=== PATIENT | male | born 1990 | race American Indian/Alaskan Native ===

== ENCOUNTER 2020-05-20 15:04 | Emergency (ER) | payer SELFPAY ==
[2020-05-20 15:13] VITALS: BP 139/81
--- NOTE | 2020-05-20 18:06 | Emergency Department Report ---
ED General Adult HPI - General Chief complaint: Overdose Stated complaint: OVERDOSE Time Seen by Provider: 05/20/20 17:05 Source: patient Mode of arrival: Ambulatory Limitations: No Limitations - History of Present Illness Initial comments: This is a 29-year-old male who has been abusing ecstasy. He states that he took a pill last night and previously 1 2 days ago. He states that he has no intent of self-harm. He states he has been drinking a lot of water and his urine is quite clear. He does not complain any symptoms now. He states that earlier in the day he felt a bit dizzy. He did not pass out. He did not have any breathing trouble. He is asymptomatic at the time of my exam. He denies any significant past medical history. -: minutes(s) Associated Symptoms: denies other symptoms - Related Data Allergies Allergy/AdvReac Type Severity Reaction Status Date / Time No Known Allergies Allergy Unverified 05/20/20 15:10 ED Review of Systems ROS: Stated complaint: OVERDOSE Other details as noted in HPI Constitutional: other (Brief dizziness at 2:00 this afternoon. Did not recur. Did not feel like he was going to pass out.). denies: chills, fever Eyes: denies: eye pain, eye discharge, vision change ENT: denies: ear pain, throat pain Respiratory: denies: cough, shortness of breath, wheezing Cardiovascular: denies: chest pain, palpitations Endocrine: no symptoms reported Gastrointestinal: denies: abdominal pain, nausea, diarrhea Genitourinary: denies: urgency, dysuria Musculoskeletal: denies: back pain, joint swelling, arthralgia Skin: denies: rash, lesions Neurological: denies: headache, weakness, paresthesias Psychiatric: denies: anxiety, depression Hematological/Lymphatic: denies: easy bleeding, easy bruising ED Past Medical Hx - Past Medical History Previous Medical History?: No - Surgical History Past Surgical History?: No - Social History Smoking Status: Current Every Day Smoker Substance Use Type: Alcohol, Marijuana, Other ED Physical Exam - General Limitations: No Limitations General appearance: alert, in no apparent distress - Head Head exam: Present: atraumatic, normocephalic - Eye Eye exam: Present: normal appearance, PERRL, EOMI. Absent: scleral icterus - ENT ENT exam: Present: mucous membranes moist - Neck Neck exam: Present: normal inspection - Respiratory Respiratory exam: Present: normal lung sounds bilaterally. Absent: respiratory distress - Cardiovascular Cardiovascular Exam: Present: regular rate, normal rhythm. Absent: systolic murmur, diastolic murmur, rubs, gallop - GI/Abdominal GI/Abdominal exam: Present: soft, normal bowel sounds. Absent: distended, tenderness, guarding - Rectal Rectal exam: Present: deferred - Extremities Exam Extremities exam: Present: normal inspection - Back Exam Back exam: Present: normal inspection - Neurological Exam Neurological exam: Present: alert, oriented X3, CN II-XII intact, normal gait. Absent: motor sensory deficit - Psychiatric Psychiatric exam: Present: normal affect, normal mood - Skin Skin exam: Present: warm, dry, intact, normal color. Absent: rash ED Course Vital Signs 05/20/20 15:12 Temperature 98.9 F Pulse Rate 110 H Respiratory 20 Rate Blood Pressure 139/81 O2 Sat by Pulse 96 Oximetry - Reevaluation(s) Reevaluation #1: Patient's Accu-Chek was approximately 100. His EKG was normal. I do not think there is any indication for further medical screening at this time. Obviously the patient should avoid substance abuse. 05/20/20 18:08 ED Medical Decision Making - EKG Data -: EKG Interpreted by Me EKG shows normal: sinus rhythm, axis, intervals, QRS complexes, ST-T waves Rate: normal - EKG Data Interpretation: other (Early repolarization) Critical care attestation.: If time is entered above; I have spent that time in minutes in the direct care of this critically ill patient, excluding procedure time. ED Disposition Clinical Impression: MDMA abuse Disposition: DC-01 TO HOME OR SELFCARE Is pt being admited?: No Does the pt Need Aspirin: No Condition: Stable Instructions: Methamphetamine Abuse (ED) Additional Instructions: Obviously is not recommended to be used ecstasy. It is not inherently dangerous drug. Follow-up in the primary care setting. Return any further symptoms as needed. Referrals: PRIMARY CARE, [Primary Care Provider] - 3-5 Days [facility] [Provider Group] - 2-3 Days Time of Disposition: 18:10
== END 2020-05-20 18:20 | disposition home or self-care (01) ==
LOC: ED 15:04
DX: F19.10 Other psychoactive substance abuse, uncomplicated (principal); F17.200 Nicotine dependence, unspecified, uncomplicated; F12.10 Cannabis abuse, uncomplicated
CPT/HCPCS: 82962; 93005; 99282